=== PATIENT | female | born 1970 | race Caucasian/White ===

== ENCOUNTER 2016-11-09 17:26 | Emergency (ER) | payer MEDICARE ==
--- NOTE | 2016-11-09 18:12 | ED ORDER SUMMARY ---
..... Patient: SCOTTY SANTOS OrderSheet [facility] VisitID: [id number] [address] [place] [address] 46y, F Registration Date/Time: 11/09/2016 ORDER SHEET Weight: 106.5 kg (stated) Allergies: None GENERAL ORDERS: Knee 4V Right (arthritis like pain in medial/lat and posterior inferior knee) Urgent (17:49 11/09/2016 Yunior OROURKE) (Ack 17:51 TBergley) (18:01 TBergley) MEDICATION ORDERS: IV FLUIDS: ORDER SHEET NOTES: [Electronically signed by Damaris Gilmore R.N. (18:24 11/09/2016)] [Electronically signed by Almita Wray PA-C (20:22 11/09/2016)] [Electronically locked/signed by Damaris Gilmore R.N. (18:24 11/09/2016)]
--- NOTE | 2016-11-09 18:12 | ED ORDER SUMMARY ---
..... Patient: SCOTTY SANTOS OrderSheet [facility] VisitID: [id number] [address] [place] [address] 46y, F Registration Date/Time: 11/09/2016 ORDER SHEET Weight: 106.5 kg (stated) Allergies: None GENERAL ORDERS: Knee 4V Right (arthritis like pain in medial/lat and posterior inferior knee) Urgent (17:49 11/09/2016 Yunior OROURKE) (Ack 17:51 TBergley) (18:01 TBergley) MEDICATION ORDERS: IV FLUIDS: ORDER SHEET NOTES: [Electronically signed by Damaris Gilmore R.N. (18:24 11/09/2016)] [Electronically signed by Almita Wray PA-C (20:22 11/09/2016)] [Electronically locked/signed by Damaris Gilmore R.N. (18:24 11/09/2016)]
--- NOTE | 2016-11-09 18:12 | ED CLINICAL REPORT ---
Clinical Report - Physicians/Mid Levels [facility] [address] [place] [address] 11/09/2016 17:30 Patient: ZEHRA WOOD Time Seen: 17:50; initial patient contact. Arrived- By private vehicle. Historian- patient. HISTORY OF PRESENT ILLNESS Chief Complaint: LOWER EXTREMITY PAIN and ; PAIN IN THE RIGHT KNEE. Is still present. (6 months). Modifying factors- worsened by standing and walking. Relieved by [id number]-uzzzvfr analgesics. Severity is described as being moderate. The quality is noted to be sharp, aching and "pain". No radiation. Symptoms located in the area of the right knee. The patient has had mild difficulty walking. It has been associated with pain in the right leg. Patient denies an injury. Similar symptoms previously: Recent medical care: Not recently seen/assessed. REVIEW OF SYSTEMS All systems otherwise negative, except as recorded above. PAST HISTORY See nurses notes. Problems: Sprain. Tetanus Status. Immunizations. Medications: None. Allergies: None. SOCIAL HISTORY Never smoker. No alcohol use or drug use. FAMILY HISTORY Negative. ADDITIONAL NOTES The nursing notes have been reviewed with agreement regarding the chief complaint, HPI, ROS, PMH and patient medications and allergies. PHYSICAL EXAM Vital Signs: 11/09/2016 17:35 BP: 144/86. HR: 84. RR: 17. O2 saturation: 100%. Temp: 98.4 F. Pain level now: 0/10. Have been reviewed. Appearance: Alert. Oriented X3. No acute distress. Skin: Skin intact. Skin warm and dry. Normal skin color. Normal skin turgor. Extremities: Right knee: mild tenderness and swelling located in the infrapatellar area, medial joint line and lateral joint line. Limited ROM secondary to pain (diminished flexion and extension). Small joint effusion present. Neurovascular intact distally. No ligamentous laxity present. No erythema. No signs of infection involving the lower extremities. No lower extremity edema. No calf tenderness. Extremities otherwise negative. Gait: Limping gait. Neuro: Oriented X 3. LABS, X-RAYS, AND EKG Rt Knee X-ray: No fracture. (Name: Zehra Wood : 1970 MR#: [id number] Ordering Provider: MIKE FREEMAN Exam(s): XR KNEE 4 VIEWS - RIGHT Date of Exam: 11/09/2016 __ PROCEDURE: XR KNEE 4 VIEWS - RIGHT INDICATION: PAIN IN JOINT TECHNIQUE: Four views. COMPARISON: None. FINDINGS: There are moderate degenerative change of the right patellofemoral joint with mild degenerative changes of the medial lateral compartments. The rest of the osseous structures and joint spaces are normal. IMPRESSION: 1. Mild to moderate degenerative changes of the right knee (primarily affecting the right patellofemoral joint). Electronically Final signed by:Lei Leung MD 11/09/2016 6:47:13 PM Technologist: RORO). The X-rays were independently viewed by me, interpreted by the radiologist and discussed with the radiologist. PROGRESS AND PROCEDURES Course of Care: Patient is stable. CLINICAL IMPRESSION Acute flare of moderate primary osteoarthritis involving the right knee. INSTRUCTIONS Wear elastic wrap as directed as needed. No strenuous activity. You may walk and bear weight as tolerated. No dietary restrictions. (you have arthritis to the right (and likely also the left) knee. you should see your pcp for further evaluation. Physical therapy may be beneficial. also orthopedic evaluation if not improved can be considered.). Warnings: GENERAL WARNINGS: Return or contact your physician immediately if your condition worsens or changes unexpectedly, if not improving as expected, or if other problems arise. Prescription Medications: Ibuprofen 800 mg tablets: take 1 tablet orally every 8 hours as needed for pain. Dispense twenty (20). No refill. Follow-up: Follow up with an orthopedic surgeon- as recommended by your primary care physician. Reason for referral: arthritis knees. Understanding of the discharge instructions verbalized by patient. (Electronically signed by Mike Freeman PA-C 11/09/2016 20:22)
--- NOTE | 2016-11-09 18:12 | ED NURSING NOTES ---
Clinical Report - Nurses [facility] [address] [place] [address] 11/09/2016 17:30 [id number] Triage time 17:35 Nov 09 2016. Acuity: LEVEL 4. Chief Complaint: RIGHT LOWER EXTREMITY PAIN. Location of symptoms- right knee (pt c/o right knee pain, pain increases with ambulation, ongoing for 6 months). Alert. No acute distress. SEPSIS SCREEN: Sepsis Screen: negative. Negative (no infection suspected/documented). KYLIE COMA SCORE: [place] Coma Scale: 15- eyes open spontaneously (4); best verbal response- oriented x 4 (5); best motor response- obeys commands (6). --17:41 Sam Ceballos R.N. 17:35 11/09/16. BP: 144/86. HR: 84. RR: 17. O2 saturation: 100%. Temp: 98.4 F. Pain level now: 0/10. --17:41 Sam Ceballos R.N. Weight: 106.5 kg stated. Height/Length: 60 inches Per Patient. BMI: 45.9. --17:42 Sam Ceballos R.N. Medications None. --17:37 Sam Ceballos R.N. Allergies None. --17:37 Sam Ceballos R.N. History Arrived by private vehicle. Historian: patient. This occurred (6 months ago). Provoking / relieving factors: worsened by movement. ( unknown). Treatment MANAGER INTERVENTIONAL: None. Took ibuprofen. PAST MEDICAL HX: Tetanus status: unknown. Immunizations: status is unknown. The patient is post-menopausal. Denies current : 5 years ago. SOCIAL HX: Heavy tobacco smoker (cigarette)- less than 1 pack per day. Occasional alcohol use. No drug use. No infectious disease exposure. ABUSE ASSESSMENT: No report of abuse. SELF HARM ASSESSMENT: A self harm assessment was performed. The patient answered "no" to the question "Have you recently felt down, depressed, or hopeless?", "Have you noticed less interest or pleasure in doing things?", "Do you have thoughts of harming or killing yourself?", "Are you here because you tried to hurt yourself?", "Have you ever tried to hurt yourself before today?", "Have you recently had thoughts about harming or killing others?" and "Do you have any dangerous items in your possession?". FALL RISK ASSESSMENT: Fall risk assessment completed. No fall risk identified. NUTRITIONAL RISK ASSESSMENT: The nutritional risk assessment revealed no deficiencies. FUNCTIONAL ASSESSMENT: Functional assessment: no impairments noted. LEARNING NEEDS ASSESSMENT: The learning needs assessment revealed no barriers. SKIN INTEGRITY ASSESSMENT: Skin integrity risk assessment completed. No skin integrity risk identified. --17:41 Sam Ceballos R.N. PROBLEMS: PKU. --17:37 Sam Ceballos R.N. ADDITIONAL SURGERIES: Fatty Tumor Removal. Tonsillectomy. Tubes in ears. --17:37 Sam Ceballos R.N. Interventions ID band on patient. To treatment room. --17:41 Sam Ceballos R.N. PHYSICAL ASSESSMENT Ambulatory to room. Patient gowned. GENERAL / NEURO / PSYCH: Oriented X 4. Alert. Appears in no acute distress. EXTREMITIES: Extremity pulses are within normal limits. Extremities exhibit normal ROM. Neuro-vascular status intact to the extremity. No lower extremity edema. Normal gait. Right knee: (pain). ( pain with movement). SKIN: Skin intact. Skin is warm and dry. --17:41 Sam Ceballos R.N. NURSING PROGRESS NOTES Patient gowned. Reassurance given. Two patient identifiers checked. Call light placed in reach. Side rails up x 1. Bed placed in lowest position. Brakes of bed on. Patient ready for evaluation- chart flagged. --17:42 Sam Ceballos R.N. Patient transported to radiology by stretcher with [employer]. ([id number]). --18:09 Sam Ceballos R.N. DISPOSITION / DISCHARGE 18:20. Condition at departure: unchanged. No learning barriers present. Discharge instructions provided and reviewed with the patient. Reviewed medication(s) side effects, precautions, dosing and course information. Prescription(s) given to the patient. Patient verbalized understanding. Written instructions provided in Estonian. The patient was discharged home. She left the Emergency Department ambulatory and via private vehicle. Patient driving. Medication list reviewed and validated. --18:23 Damaris Gilmore R.N. 17:35 11/09/16. BP: 144/86. HR: 84. RR: 17. O2 saturation: 100%. Temp: 98.4 F. Pain level now: 0/10. --18:23 Damaris Gilmore R.N. Locked/Released at 11/09/2016 18:24 by Damaris Gilmore R.N.
--- NOTE | 2016-11-09 18:12 | ED NURSING NOTES ---
Clinical Report - Nurses [facility] [address] [place] [address] 11/09/2016 17:30 [id number] Triage time 17:35 Nov 09 2016. Acuity: LEVEL 4. Chief Complaint: RIGHT LOWER EXTREMITY PAIN. Location of symptoms- right knee (pt c/o right knee pain, pain increases with ambulation, ongoing for 6 months). Alert. No acute distress. SEPSIS SCREEN: Sepsis Screen: negative. Negative (no infection suspected/documented). KYLIE COMA SCORE: [place] Coma Scale: 15- eyes open spontaneously (4); best verbal response- oriented x 4 (5); best motor response- obeys commands (6). --17:41 Sam Ceballos R.N. 17:35 11/09/16. BP: 144/86. HR: 84. RR: 17. O2 saturation: 100%. Temp: 98.4 F. Pain level now: 0/10. --17:41 Sam Ceballos R.N. Weight: 106.5 kg stated. Height/Length: 60 inches Per Patient. BMI: 45.9. --17:42 Sam Ceballos R.N. Medications None. --17:37 Sam Ceballos R.N. Allergies None. --17:37 Sam Ceballos R.N. History Arrived by private vehicle. Historian: patient. This occurred (6 months ago). Provoking / relieving factors: worsened by movement. ( unknown). Treatment PRESSURE TEST OPERATOR: None. Took ibuprofen. PAST MEDICAL HX: Tetanus status: unknown. Immunizations: status is unknown. The patient is post-menopausal. Denies current : 5 years ago. SOCIAL HX: Heavy tobacco smoker (cigarette)- less than 1 pack per day. Occasional alcohol use. No drug use. No infectious disease exposure. ABUSE ASSESSMENT: No report of abuse. SELF HARM ASSESSMENT: A self harm assessment was performed. The patient answered "no" to the question "Have you recently felt down, depressed, or hopeless?", "Have you noticed less interest or pleasure in doing things?", "Do you have thoughts of harming or killing yourself?", "Are you here because you tried to hurt yourself?", "Have you ever tried to hurt yourself before today?", "Have you recently had thoughts about harming or killing others?" and "Do you have any dangerous items in your possession?". FALL RISK ASSESSMENT: Fall risk assessment completed. No fall risk identified. NUTRITIONAL RISK ASSESSMENT: The nutritional risk assessment revealed no deficiencies. FUNCTIONAL ASSESSMENT: Functional assessment: no impairments noted. LEARNING NEEDS ASSESSMENT: The learning needs assessment revealed no barriers. SKIN INTEGRITY ASSESSMENT: Skin integrity risk assessment completed. No skin integrity risk identified. --17:41 Sam Ceballos R.N. PROBLEMS: PKU. --17:37 Sam Ceballos R.N. ADDITIONAL SURGERIES: Fatty Tumor Removal. Tonsillectomy. Tubes in ears. --17:37 Sam Ceballos R.N. Interventions ID band on patient. To treatment room. --17:41 Sam Ceballos R.N. PHYSICAL ASSESSMENT Ambulatory to room. Patient gowned. GENERAL / NEURO / PSYCH: Oriented X 4. Alert. Appears in no acute distress. EXTREMITIES: Extremity pulses are within normal limits. Extremities exhibit normal ROM. Neuro-vascular status intact to the extremity. No lower extremity edema. Normal gait. Right knee: (pain). ( pain with movement). SKIN: Skin intact. Skin is warm and dry. --17:41 Sam Ceballos R.N. NURSING PROGRESS NOTES Patient gowned. Reassurance given. Two patient identifiers checked. Call light placed in reach. Side rails up x 1. Bed placed in lowest position. Brakes of bed on. Patient ready for evaluation- chart flagged. --17:42 Sam Ceballos R.N. Patient transported to radiology by stretcher with [employer]. ([id number]). --18:09 Sam Ceballos R.N. DISPOSITION / DISCHARGE 18:20. Condition at departure: unchanged. No learning barriers present. Discharge instructions provided and reviewed with the patient. Reviewed medication(s) side effects, precautions, dosing and course information. Prescription(s) given to the patient. Patient verbalized understanding. Written instructions provided in Mongolian. The patient was discharged home. She left the Emergency Department ambulatory and via private vehicle. Patient driving. Medication list reviewed and validated. --18:23 Damaris Gilmore R.N. 17:35 11/09/16. BP: 144/86. HR: 84. RR: 17. O2 saturation: 100%. Temp: 98.4 F. Pain level now: 0/10. --18:23 Damaris Gilmore R.N. Locked/Released at 11/09/2016 18:24 by Damaris Gilmore R.N.
--- NOTE | 2016-11-09 18:12 | ED CLINICAL REPORT ---
Clinical Report - Physicians/Mid Levels [facility] [address] [place] [address] 11/09/2016 17:30 Patient: ZEHRA WOOD Time Seen: 17:50; initial patient contact. Arrived- By private vehicle. Historian- patient. HISTORY OF PRESENT ILLNESS Chief Complaint: LOWER EXTREMITY PAIN and ; PAIN IN THE RIGHT KNEE. Is still present. (6 months). Modifying factors- worsened by standing and walking. Relieved by [id number] analgesics. Severity is described as being moderate. The quality is noted to be sharp, aching and "pain". No radiation. Symptoms located in the area of the right knee. The patient has had mild difficulty walking. It has been associated with pain in the right leg. Patient denies an injury. Similar symptoms previously: Recent medical care: Not recently seen/assessed. REVIEW OF SYSTEMS All systems otherwise negative, except as recorded above. PAST HISTORY See nurses notes. Problems: Sprain. Tetanus Status. Immunizations. Medications: None. Allergies: None. SOCIAL HISTORY Never smoker. No alcohol use or drug use. FAMILY HISTORY Negative. ADDITIONAL NOTES The nursing notes have been reviewed with agreement regarding the chief complaint, HPI, ROS, PMH and patient medications and allergies. PHYSICAL EXAM Vital Signs: 11/09/2016 17:35 BP: 144/86. HR: 84. RR: 17. O2 saturation: 100%. Temp: 98.4 F. Pain level now: 0/10. Have been reviewed. Appearance: Alert. Oriented X3. No acute distress. Skin: Skin intact. Skin warm and dry. Normal skin color. Normal skin turgor. Extremities: Right knee: mild tenderness and swelling located in the infrapatellar area, medial joint line and lateral joint line. Limited ROM secondary to pain (diminished flexion and extension). Small joint effusion present. Neurovascular intact distally. No ligamentous laxity present. No erythema. No signs of infection involving the lower extremities. No lower extremity edema. No calf tenderness. Extremities otherwise negative. Gait: Limping gait. Neuro: Oriented X 3. LABS, X-RAYS, AND EKG Rt Knee X-ray: No fracture. (Name: Zehra Wood : 1970 MR#: [id number] Ordering Provider: IMKE FREEMAN Exam(s): XR KNEE 4 VIEWS - RIGHT Date of Exam: 11/09/2016 __ PROCEDURE: XR KNEE 4 VIEWS - RIGHT INDICATION: PAIN IN JOINT TECHNIQUE: Four views. COMPARISON: None. FINDINGS: There are moderate degenerative change of the right patellofemoral joint with mild degenerative changes of the medial lateral compartments. The rest of the osseous structures and joint spaces are normal. IMPRESSION: 1. Mild to moderate degenerative changes of the right knee (primarily affecting the right patellofemoral joint). Electronically Final signed by:Lei Leung MD 11/09/2016 6:47:13 PM Technologist: RORO). The X-rays were independently viewed by me, interpreted by the radiologist and discussed with the radiologist. PROGRESS AND PROCEDURES Course of Care: Patient is stable. CLINICAL IMPRESSION Acute flare of moderate primary osteoarthritis involving the right knee. INSTRUCTIONS Wear elastic wrap as directed as needed. No strenuous activity. You may walk and bear weight as tolerated. No dietary restrictions. (you have arthritis to the right (and likely also the left) knee. you should see your pcp for further evaluation. Physical therapy may be beneficial. also orthopedic evaluation if not improved can be considered.). Warnings: GENERAL WARNINGS: Return or contact your physician immediately if your condition worsens or changes unexpectedly, if not improving as expected, or if other problems arise. Prescription Medications: Ibuprofen 800 mg tablets: take 1 tablet orally every 8 hours as needed for pain. Dispense twenty (20). No refill. Follow-up: Follow up with an orthopedic surgeon- as recommended by your primary care physician. Reason for referral: arthritis knees. Understanding of the discharge instructions verbalized by patient. (Electronically signed by Mike Freeman PA-C 11/09/2016 20:22)
--- NOTE | 2016-11-09 18:50 | DIAGNOSTIC IMAGING REPORT ---
PROCEDURE: XR KNEE 4 VIEWS - RIGHT INDICATION: PAIN IN JOINT TECHNIQUE: Four views. COMPARISON: None. FINDINGS: There are moderate degenerative change of the right patellofemoral joint with mild degenerative changes of the medial lateral compartments. The rest of the osseous structures and joint spaces are normal. IMPRESSION: 1. Mild to moderate degenerative changes of the right knee (primarily affecting the right patellofemoral joint).
--- NOTE | 2016-11-09 20:22 | ED MAR SUMMARY ---
..... Medication Administration Record [facility] [address] [place], [place] [id number] Patient: SCOTTY SANTOS V[place] Visit ID: [id number] 46y, F Weight: 106.5 kg Height/Length: 60 in BMI: 45.9 ALLERGIES: None
--- NOTE | 2016-11-09 20:22 | ED MAR SUMMARY ---
..... Medication Administration Record [facility] [address] [place], [place] [id number] Patient: SCOTTY SANTOS [place] Visit ID: [id number] 46y, F Weight: 106.5 kg Height/Length: 60 in BMI: 45.9 ALLERGIES: None
--- NOTE | 2016-11-09 20:22 | ED DISCHARGE INSTRUCTIONS ---
Patient: SCOTTY SANTOS General Instructions Located [facility] VisitID: [id number] [place] [address] 46y, F Registration Date/Time: 11/09/2016 Acute flare of moderate primary osteoarthritis involving the right knee. INSTRUCTIONS Wear elastic wrap as directed as needed. No strenuous activity. You may walk and bear weight as tolerated. No dietary restrictions. (you have arthritis to the right (and likely also the left) knee. you should see your pcp for further evaluation. Physical therapy may be beneficial. also orthopedic evaluation if not improved can be considered.). Warnings: GENERAL WARNINGS: Return or contact your physician immediately if your condition worsens or changes unexpectedly, if not improving as expected, or if other problems arise. Prescription Medications: Ibuprofen 800 mg tablets: take 1 tablet orally every 8 hours as needed for pain. Dispense twenty (20). No refill. Follow-up: Follow up with an orthopedic surgeon- as recommended by your primary care physician. Reason for referral: arthritis knees. Understanding of the discharge instructions verbalized by patient. No strenuous activity. You may walk and bear weight as tolerated. (Electronically signed by Almita Wray PA-C 11/09/2016 20:22)
--- NOTE | 2016-11-09 20:22 | ED DISCHARGE INSTRUCTIONS ---
Patient: SCOTTY SANTOS General Instructions [facility] VisitID: [id number] [place] [address] 46y, F Registration Date/Time: 11/09/2016 Acute flare of moderate primary osteoarthritis involving the right knee. INSTRUCTIONS Wear elastic wrap as directed as needed. No strenuous activity. You may walk and bear weight as tolerated. No dietary restrictions. (you have arthritis to the right (and likely also the left) knee. you should see your pcp for further evaluation. Physical therapy may be beneficial. also orthopedic evaluation if not improved can be considered.). Warnings: GENERAL WARNINGS: Return or contact your physician immediately if your condition worsens or changes unexpectedly, if not improving as expected, or if other problems arise. Prescription Medications: Ibuprofen 800 mg tablets: take 1 tablet orally every 8 hours as needed for pain. Dispense twenty (20). No refill. Follow-up: Follow up with an orthopedic surgeon- as recommended by your primary care physician. Reason for referral: arthritis knees. Understanding of the discharge instructions verbalized by patient. No strenuous activity. You may walk and bear weight as tolerated. (Electronically signed by Almita Wray PA-C 11/09/2016 20:22)
--- NOTE | 2016-11-09 20:22 | ED MED RECONCILIATION SUMMARY ---
Patient: SCOTTY SANTOS Medication Reconciliation Report [facility] VisitID: [id number] [address] [place] [address] 46y, F Registration Date/Time: 11/09/2016 Weight: 106.5 kg Height/Length: 60 in. BMI: 45.9 ALLERGIES: None The patient's Home Medications are listed below: NONE. The source(s) of the original Home Medication information: Not obtained. The following Medications were given to the patient in the Emergency Department: None. The following Medications were prescribed to the patient: Ibuprofen 800 mg tablets: take 1 tablet orally every 8 hours as needed for pain. Dispense twenty (20). No refill. -- Almita Wray PA-C
--- NOTE | 2016-11-09 20:22 | ED MED RECONCILIATION SUMMARY ---
Patient: SCOTTY SANTOS Medication Reconciliation Report [facility] VisitID: [id number] [address] [place] [address] 46y, F Registration Date/Time: 11/09/2016 Weight: 106.5 kg Height/Length: 60 in. BMI: 45.9 ALLERGIES: None The patient's Home Medications are listed below: NONE. The source(s) of the original Home Medication information: Not obtained. The following Medications were given to the patient in the Emergency Department: None. The following Medications were prescribed to the patient: Ibuprofen 800 mg tablets: take 1 tablet orally every 8 hours as needed for pain. Dispense twenty (20). No refill. -- Almita Wray PA-C
== END 2016-11-09 18:59 | disposition home or self-care (01) ==
LOC: ED SRH 17:26
DX: M17.11 Unilateral primary osteoarthritis, right knee (principal)